=== PATIENT | female | born 1935 | race Native Hawaiian/Other Pacific Islander ===

== ENCOUNTER 2016-09-25 11:44 | Outpatient (CLI) | payer BC, OTHER ==
[~2016-09-25 11:44] MED LIST: CARDURA1 MG PO; CARV25TA PO; KLOR-CON 1010 MEQ PO; SIMV20TA2 PO; WARFARIN2 MG PO; ZESTRIL40 MG PO
[2016-09-25 12:06] LABS: POTASSIUM 4.1 mmol/L (3.6-5.2)
== END 2016-09-25 23:03 | disposition home or self-care (01) ==
LOC: LABW 11:44
PROVIDERS: Nurse Practitioner
DX: I10 Essential (primary) hypertension (principal)
CPT/HCPCS: 36415; 80048

== ENCOUNTER 2017-01-25 11:14 | Outpatient (CLI) | payer BC, OTHER ==
[~2017-01-25] VITALS: Ht 162.6 cm; Wt 72.1 kg
[2017-01-25 11:25] VITALS: BP 146/49; TEMP 97.5
[2017-01-25 13:25] LABS: PLATELET COUNT 254 K/uL (152-353)
[2017-01-25 13:30] LABS: POTASSIUM 4.8 mmol/L (3.6-5.2)
[2017-01-25 15:55] VITALS: BP 134/62; TEMP 97.5
== END 2017-01-25 19:48 | disposition home or self-care (01) ==
LOC: INF 11:14
PROVIDERS: Internal Medicine Hematology & Oncology
DX: N39.0 Urinary tract infection, site not specified (principal); R11.2 Nausea with vomiting, unspecified; R19.7 Diarrhea, unspecified
CPT/HCPCS: 36415; 80053; 81000; 82272; 83735; 84100; 85027; 87045; 87077; 87086; 87088; 87186; 87205; 87328; 87329; 87493; 87798; 87899; 96360; 96372; J0696; J2550

== ENCOUNTER 2017-02-13 09:30 | Outpatient (CLI) | payer BC, OTHER ==
[2017-02-13 09:57] LABS: PLATELET COUNT 223 K/uL (152-353)
[2017-02-13 10:00] LABS: POTASSIUM 5.3 mmol/L (3.6-5.2)
== END 2017-02-13 10:30 | disposition home or self-care (01) ==
LOC: LABW 09:30
PROVIDERS: Nurse Practitioner Family
DX: E78.4 Other hyperlipidemia (principal); I10 Essential (primary) hypertension; Z09 Encounter for follow-up examination after completed treatment for conditions other than malignant neoplasm
CPT/HCPCS: 36415; 80048; 80061; 80076; 85027

== ENCOUNTER 2017-04-16 12:07 | Outpatient (CLI) | payer BC, OTHER ==
[2017-04-16 13:23] LABS: PLATELET COUNT 207 K/uL (152-353)
[2017-04-16 13:36] LABS: POTASSIUM 5.5 mmol/L (3.6-5.2)
== END 2017-04-16 13:30 | disposition home or self-care (01) ==
LOC: LABW 12:07
PROVIDERS: Family Medicine
DX: R10.84 Generalized abdominal pain (principal); M54.89 Other dorsalgia; R30.0 Dysuria; R91.8 Other nonspecific abnormal finding of lung field
CPT/HCPCS: 36415; 80053; 81000; 83735; 85027; 87077; 87086; 87088; 87186

== ENCOUNTER 2017-04-30 11:01 | Outpatient (CLI) | payer BC, OTHER ==
[2017-04-30 12:48] LABS: POTASSIUM 5.2 mmol/L (3.6-5.2)
== END 2017-04-30 12:20 | disposition home or self-care (01) ==
LOC: LABW 11:01
PROVIDERS: Family Medicine
DX: R10.84 Generalized abdominal pain (principal); M54.89 Other dorsalgia; R35.0 Frequency of micturition; I10 Essential (primary) hypertension; E87.5 Hyperkalemia
CPT/HCPCS: 36415; 80053; 81000; 87077; 87086; 87088; 87186

== ENCOUNTER 2017-05-03 11:57 | Observation (INO) | payer BC, OTHER ==
[~2017-05-03] VITALS: Ht 162.6 cm; Wt 70.1 kg
[2017-05-03 13:45] LABS: PLATELET COUNT 236 K/uL (152-353)
[2017-05-03 14:01] VITALS: BP 167/75; TEMP 97.7; Ht 162.6 cm; Wt 70.1 kg
[2017-05-03] MEDS ORDERED: SPIRONOLACT25 MG PO ×2 (14:49)
[2017-05-03] MEDS ORDERED: HYDROXYZ HCL10 MG PO ×2 (14:53)
[2017-05-03] MEDS ORDERED: ELIQUIS5 MG OR ×2 (14:54)
[2017-05-03] MEDS ORDERED: REQUIP0.25 MG OR ×2 (14:55)
[2017-05-03] MEDS ORDERED: CARV12.5 PO ×2 (14:56)
[2017-05-03] MEDS ORDERED: BENICAR20 MG PO ×2 (14:59)
[2017-05-03] MEDS ORDERED: CLARITIN10 M1 PO ×2 (15:00)
[2017-05-03] MEDS ORDERED: ZANAFLEX2 MG PO ×2 (15:03)
[2017-05-03 15:47] VITALS: BP 186/67; TEMP 97.5
[2017-05-03 20:00] VITALS: BP 152/54; TEMP 97.5
[2017-05-04] VITALS: BP 151/55; TEMP 97.5
[2017-05-04 04:00] VITALS: BP 154/60; TEMP 97.4
[2017-05-04 05:42] LABS: PLATELET COUNT 216 K/uL (152-353)
[2017-05-04 06:01] LABS: POTASSIUM 4.5 mmol/L (3.6-5.2)
[2017-05-04 08:00] VITALS: BP 176/62; TEMP 97.7
[2017-05-04 11:54] VITALS: BP 151/58; TEMP 97.8
== END 2017-05-04 13:03 | disposition home or self-care (01) ==
LOC: MED/SURG 11:57
PROVIDERS: Emergency Medicine; ADMIT Family Medicine
DX: N39.0 Urinary tract infection, site not specified (principal); B96.5 Pseudomonas (aeruginosa) (mallei) (pseudomallei) as the cause of diseases classified elsewhere; E83.42 Hypomagnesemia; I12.9 Hypertensive chronic kidney disease with stage 1 through stage 4 chronic kidney disease, or unspecified chronic kidney disease; N18.4 Chronic kidney disease, stage 4 (severe)
CPT/HCPCS: 36415; 80053; 83735; 84100; 85027; 87040; 96365; 96366; 96367; 99220; G0378; G0379

== ENCOUNTER 2017-05-05 07:19 | Outpatient (CLI) | payer BC, OTHER ==
[~2017-05-05 07:19] MED LIST changes: +BENICAR20 MG PO; +CARV12.5 PO; +CLARITIN10 M1 PO; +ELIQUIS5 MG OR; +HYDROXYZ HCL10 MG PO; +REQUIP0.25 MG OR; +SPIRONOLACT25 MG PO; +ZANAFLEX2 MG PO
== END 2017-05-05 09:30 | disposition home or self-care (01) ==
LOC: INF 07:19
DX: N39.0 Urinary tract infection, site not specified (principal); B96.5 Pseudomonas (aeruginosa) (mallei) (pseudomallei) as the cause of diseases classified elsewhere
CPT/HCPCS: 96365; J2185

== ENCOUNTER 2017-05-06 07:42 | Outpatient (CLI) | payer BC, OTHER | END 2017-05-06 18:59 | disposition home or self-care (01) | LOC: INF 07:42 | DX: N39.0 Urinary tract infection, site not specified (principal); B96.5 Pseudomonas (aeruginosa) (mallei) (pseudomallei) as the cause of diseases classified elsewhere | CPT/HCPCS: 96365; 96366 ==

== ENCOUNTER 2017-05-07 07:46 | Outpatient (CLI) | payer BC, OTHER | END 2017-05-07 18:59 | disposition home or self-care (01) | LOC: INF 07:46 | DX: N39.0 Urinary tract infection, site not specified (principal); B96.5 Pseudomonas (aeruginosa) (mallei) (pseudomallei) as the cause of diseases classified elsewhere | CPT/HCPCS: 96365; 96366; J2185 ==

== ENCOUNTER 2017-05-08 08:07 | Outpatient (CLI) | payer BC, OTHER ==
[~2017-05-08] VITALS: Ht 162.6 cm; Wt 69.9 kg
== END 2017-05-08 18:59 | disposition home or self-care (01) ==
LOC: INF 08:07
DX: N39.0 Urinary tract infection, site not specified (principal); B96.5 Pseudomonas (aeruginosa) (mallei) (pseudomallei) as the cause of diseases classified elsewhere
CPT/HCPCS: 96365; 96366; J2185

== ENCOUNTER 2017-05-09 07:42 | Outpatient (CLI) | payer BC, OTHER ==
[~2017-05-09] VITALS: Ht 162.6 cm; Wt 69.9 kg
== END 2017-05-09 10:30 | disposition home or self-care (01) ==
LOC: INF 07:42
DX: N39.0 Urinary tract infection, site not specified (principal); B96.5 Pseudomonas (aeruginosa) (mallei) (pseudomallei) as the cause of diseases classified elsewhere
CPT/HCPCS: 96365; 96366; J2185

== ENCOUNTER 2017-05-10 08:09 | Outpatient (CLI) | payer BC, OTHER ==
[~2017-05-10] VITALS: Ht 162.6 cm; Wt 69.9 kg
[2017-05-10 08:00] VITALS: BP 135/59; TEMP 97.6
[2017-05-10 09:20] VITALS: BP 130/56; TEMP 97.6
== END 2017-05-10 09:20 | disposition home or self-care (01) ==
LOC: INF 08:09
DX: N39.0 Urinary tract infection, site not specified (principal); B96.5 Pseudomonas (aeruginosa) (mallei) (pseudomallei) as the cause of diseases classified elsewhere
CPT/HCPCS: 96365; J2185

== ENCOUNTER 2018-03-25 13:11 | Inpatient (IN) | payer BC, OTHER ==
[~2018-03-25] VITALS: Ht 165.1 cm; Wt 74.4 kg
[2018-03-25 13:30] VITALS: BP 122/86; TEMP 98
[2018-03-25 14:49] LABS: PLATELET COUNT 248 K/uL (152-353)
[2018-03-25 15:36] LABS: POTASSIUM 7.8 mmol/L (3.6-5.2)
[2018-03-25 21:26] LABS: POTASSIUM 7.4 mmol/L (3.6-5.2)
[2018-03-26] VITALS (23 sets, daily range): BP systolic 98–161; BP diastolic 29–99; TEMP 97.5–98.4; Ht 165.1 cm; Wt 74.4 kg
[2018-03-26 04:02] LABS: POTASSIUM 6.2 mmol/L (3.6-5.2)
[2018-03-26 09:24] LABS: POTASSIUM 5.1 mmol/L (3.6-5.2)
[2018-03-26 15:37] LABS: POTASSIUM 5.4 mmol/L (3.6-5.2)
[2018-03-27] VITALS (8 sets, daily range): BP systolic 103–137; BP diastolic 49–63; TEMP 97–97.5
[2018-03-27 07:56] LABS: PLATELET COUNT 202 K/uL (152-353)
[2018-03-27 08:04] LABS: POTASSIUM 4.6 mmol/L (3.6-5.2)
== END 2018-03-27 10:59 | disposition home or self-care (01) | DRG 641 ==
LOC: ED 13:11 → ICU 22:02
PROVIDERS: Family Medicine; ADMIT Family Medicine
DX: E87.5 Hyperkalemia (principal); N18.4 Chronic kidney disease, stage 4 (severe); E87.1 Hypo-osmolality and hyponatremia; M17.11 Unilateral primary osteoarthritis, right knee; J20.9 Acute bronchitis, unspecified; I12.9 Hypertensive chronic kidney disease with stage 1 through stage 4 chronic kidney disease, or unspecified chronic kidney disease; I25.10 Atherosclerotic heart disease of native coronary artery without angina pectoris; I48.91 Unspecified atrial fibrillation; I73.9 Peripheral vascular disease, unspecified
CPT/HCPCS: 36415; 80048; 80053; 81000; 83735; 84132; 85027; 85610; 85730; 87088; 93005; 96360; 96367; 96375; 96376; 99284; J0610; J0696; J1815; J1940; J3490; J7060

== ENCOUNTER 2018-11-01 09:14 | Outpatient (CLI) | payer BC, OTHER ==
[2018-11-01 10:08] LABS: PLATELET COUNT 232 K/uL (152-353)
[2018-11-01 10:23] LABS: POTASSIUM 5.6 mmol/L (3.6-5.2)
== END 2018-11-01 22:21 | disposition home or self-care (01) ==
LOC: LABW 09:14
PROVIDERS: Internal Medicine
DX: N18.4 Chronic kidney disease, stage 4 (severe) (principal)
CPT/HCPCS: 36415; 80053; 81000; 82043; 82306; 82330; 82570; 83735; 83970; 84100; 84155; 85027

== ENCOUNTER 2020-11-12 11:20 | Outpatient (CLI) | payer BC, OTHER ==
[2020-11-12 11:44] LABS: PLATELET COUNT 217 K/uL (152-353)
[2020-11-12 11:51] LABS: POTASSIUM 4.7 mmol/L (3.6-5.2)
== END 2020-11-12 21:39 | disposition home or self-care (01) ==
LOC: LAB 11:20
PROVIDERS: ATTEND Internal Medicine
DX: N30.00 Acute cystitis without hematuria (principal); I10 Essential (primary) hypertension; R25.1 Tremor, unspecified; I48.91 Unspecified atrial fibrillation; M62.81 Muscle weakness (generalized); Z95.0 Presence of cardiac pacemaker
CPT/HCPCS: 80053; 85027

== ENCOUNTER 2020-11-19 10:17 | Outpatient (CLI) | payer BC, OTHER ==
[2020-11-19 10:43] LABS: PLATELET COUNT 285 K/uL (152-353)
[2020-11-19 10:55] LABS: POTASSIUM 4.2 mmol/L (3.6-5.2)
== END 2020-11-19 19:23 | disposition home or self-care (01) ==
LOC: LAB 10:17
PROVIDERS: ATTEND Nurse Practitioner
DX: Z95.0 Presence of cardiac pacemaker (principal); I10 Essential (primary) hypertension; I48.91 Unspecified atrial fibrillation; N19 Unspecified kidney failure
CPT/HCPCS: 80053; 83880; 85027

== ENCOUNTER 2020-12-29 10:41 | Outpatient (CLI) | payer BC, OTHER ==
[2020-12-29 11:05] LABS: PLATELET COUNT 221 K/uL (152-353)
[2020-12-29 11:57] LABS: POTASSIUM 3.7 mmol/L (3.6-5.2)
== END 2020-12-29 21:52 | disposition home or self-care (01) ==
LOC: LAB 10:41
PROVIDERS: ATTEND Internal Medicine
DX: I48.91 Unspecified atrial fibrillation (principal); D64.89 Other specified anemias; E53.8 Deficiency of other specified B group vitamins; N18.4 Chronic kidney disease, stage 4 (severe); R53.83 Other fatigue; Z79.899 Other long term (current) drug therapy; I12.9 Hypertensive chronic kidney disease with stage 1 through stage 4 chronic kidney disease, or unspecified chronic kidney disease
CPT/HCPCS: 80053; 81000; 82306; 82330; 82570; 82607; 82728; 82746; 83036; 83540; 83550; 83735; 83970; 84100; 84155; 84439; 84443; 85027; 85652; 86038

== ENCOUNTER 2021-02-02 13:57 | Outpatient (CLI) | payer BC, OTHER ==
[2021-02-02 14:25] LABS: PLATELET COUNT 234 K/uL (152-353)
[2021-02-02 14:49] LABS: POTASSIUM 2.4 mmol/L (3.6-5.2)
== END 2021-02-02 21:10 | disposition home or self-care (01) ==
LOC: LAB 13:57
PROVIDERS: ATTEND Internal Medicine
DX: I12.9 Hypertensive chronic kidney disease with stage 1 through stage 4 chronic kidney disease, or unspecified chronic kidney disease (principal); N18.4 Chronic kidney disease, stage 4 (severe); R53.83 Other fatigue; D64.89 Other specified anemias; E53.8 Deficiency of other specified B group vitamins; Z79.899 Other long term (current) drug therapy
CPT/HCPCS: 80053; 81000; 82306; 82330; 82570; 82607; 82728; 82746; 83036; 83540; 83550; 83735; 83970; 84100; 84155; 84439; 84443; 85027; 85652; 86038

== ENCOUNTER 2021-03-02 14:58 | Outpatient (CLI) | payer BC, OTHER ==
[2021-03-09 14:32] LABS: PLATELET COUNT 202 K/uL (152-353)
[2021-03-09 14:33] LABS: POTASSIUM 3.5 mmol/L (3.6-5.2)
== END 2021-03-02 23:59 | disposition home or self-care (01) ==
LOC: LAB 14:58
PROVIDERS: ATTEND Internal Medicine
DX: N30.00 Acute cystitis without hematuria (principal); I10 Essential (primary) hypertension; I48.91 Unspecified atrial fibrillation
CPT/HCPCS: 80053; 85027

== ENCOUNTER 2021-05-25 10:48 | Outpatient (CLI) | payer BC, OTHER ==
[2021-05-25 11:08] LABS: PLATELET COUNT 210 K/uL (152-353)
[2021-05-25 11:44] LABS: POTASSIUM 3.6 mmol/L (3.6-5.2)
== END 2021-05-25 20:36 | disposition home or self-care (01) ==
LOC: LAB 10:48
PROVIDERS: ATTEND Internal Medicine
DX: I12.9 Hypertensive chronic kidney disease with stage 1 through stage 4 chronic kidney disease, or unspecified chronic kidney disease (principal); N18.9 Chronic kidney disease, unspecified; R53.83 Other fatigue
CPT/HCPCS: 80053; 83735; 85027

== ENCOUNTER 2021-05-31 12:19 | Outpatient (CLI) | payer BC, OTHER | END 2021-05-31 19:13 | disposition home or self-care (01) | LOC: US 12:19 | PROVIDERS: ATTEND Internal Medicine | DX: M79.662 Pain in left lower leg (principal) ==

== ENCOUNTER 2021-07-19 00:21 | Emergency (ER) | payer BC, OTHER ==
[~2021-07-19] VITALS: Ht 162.6 cm; Wt 70.3 kg
[2021-07-19 01:17] LABS: PLATELET COUNT 232 K/uL (152-353)
[2021-07-19 01:38] LABS: POTASSIUM 3.4 mmol/L (3.6-5.2)
[2021-07-19 02:20] VITALS: BP 188/96; TEMP 97.5
== END 2021-07-19 02:25 | disposition home or self-care (01) ==
LOC: ED 00:21
PROVIDERS: Emergency Medicine Emergency Medical Services
DX: S00.83XA Contusion of other part of head, initial encounter (principal); W01.198A Fall on same level from slipping, tripping and stumbling with subsequent striking against other object, initial encounter; Y92.098 Other place in other non-institutional residence as the place of occurrence of the external cause
CPT/HCPCS: 36415; 80053; 84484; 85027; 93005; 96360; 99284